=== PATIENT | female | born 1995 | race Hispanic/Latino ===

== ENCOUNTER 2018-07-22 07:33 | Emergency (ER) | payer BC ==
[~2018-07-22] VITALS: Ht 147.3 cm; Wt 38.6 kg
[2018-07-22] MEDS ORDERED: ONDANSETRON HCL INJ 2 MG/ML VIAL IV STA (07:47)
[2018-07-22] MEDS ORDERED: KETOROLAC TROMETHAMINE 30 MG/ML VIAL IV STA (07:47)
[2018-07-22] MEDS ORDERED: SODIUM CHLORIDE 0.9% 500ML 500 ML IV ONE (08:00)
--- NOTE | 2018-07-22 09:16 | Diagnostic Imaging Report ---
EXAM: CT ABDOMEN AND PELVIS without IV CONTRAST DATE: 07/22/2018 Time stamp on Exam: 8:27 AM INDICATION: Left flank pain COMPARISON: None TECHNIQUE: The abdomen and pelvis were scanned using a multidetector helical scanner. Coronal and sagittal reformations were obtained. Low-dose renal stone protocol was utilized. IV Contrast: None Oral Contrast: None Radiation Dose: Total DLP 192.25 mGy*cm Estimated effective dose: DLP x 0.015 x size factor FINDINGS: LOWER THORAX: No consolidations LIVER: No masses BILIARY: The gallbladder is unremarkable. No ductal dilatation. SPLEEN: No masses PANCREAS: No masses ADRENALS: No nodules KIDNEYS: Small left proximal ureteral stone measuring 5.3 mm results in no hydronephrosis. GI TRACT: No distention, wall thickening or evidence of obstruction. VESSELS: Unremarkable PERITONEUM/RETROPERITONEUM: No free air or fluid LYMPH NODES: No lymphadenopathy REPRODUCTIVE ORGANS: Unremarkable BLADDER: Unremarkable SOFT TISSUES: Soft tissue irregularity in the left upper abdomen likely a site of a prior gastrostomy. BONES: Severe skeletal deformity. Rods and transpedicular screws overlie the lower thoracic spine and upper lumbar spine. IMPRESSION: 1. Nonobstructing proximal left ureteral stone. 2. Severe skeletal deformity. Signed by: Dr. Fer Soto DO on 07/22/2018 9:12 AM
== END 2018-07-22 10:25 | disposition home or self-care (01) ==
LOC: FSED 07:33
DX: R10.32 Left lower quadrant pain (principal); N20.1 Calculus of ureter
CPT/HCPCS: 74176; 80053; 81003; 81025; 85025; 99284; J1885; J2405; J7040